=== PATIENT | female | born 1980 | race Caucasian/White ===

== ENCOUNTER → 2019-04-02 17:21 | Outpatient (CLI) | payer OTHER, SELFPAY ==
--- NOTE | ~2019-04-02 | MM_ITS ---
EXAMINATION: MM screening tristan BI w mynor HISTORY: Screening mammogram TECHNIQUE: Craniocaudal and mediolateral oblique 3-D tomosynthesis images were obtained and synthetic 2-D images were generated. CAD analysis was submitted and interpreted. COMPARISON: No prior mammogram is available for comparison at this institution. BREAST PARENCHYMAL COMPOSITION: There are scattered areas of fibroglandular density. FINDINGS: There is no evidence of suspicious mass, calcification, or architectural distortion to sugg est malignancy in either breast. There has been no suspicious interval change. IMPRESSION: 1. No mammographic evidence of malignancy. 2. Recommend routine screening mammography in one year. BI-RADS Category 1: Negative Reviewed, dictated and finalized at location A. ING MACHINE OPERATOR
== END ==
PROVIDERS: Visit Provider Nurse Practitioner
DX: Z12.31 Encounter for screening mammogram for malignant neoplasm of breast (principal)
CPT/HCPCS: 77063; 77067

== ENCOUNTER → 2019-04-14 09:00 | Outpatient (CLI) | payer OTHER, SELFPAY ==
--- NOTE | ~2019-04-14 | US_ITS ---
EXAMINATION: US transvaginal DATE: 04/14/2019 09:27 INDICATION: Pelvic pain Examination Comparison:No prior studies for comparison. TECHNIQUE: Multiple endovaginal sonographic images of the pelvis performed. FINDINGS: The uterus measures 9.5 x 4.2 x 5.7 cm. The endometrial complex measures 9 mm. There are co arse calcifications possibly within the endometrium with shadowing. On the right there is a complex s lightly hypoechoic mass measuring 2.6 x 3.1 x 2.6 cm, compatible with fibroid. Right ovary contains a 3.3 cm cyst. Left ovary is unremarkable measuring 2.7 x 1.4 x 2.1 cm. Right ovary measures 4.1 x 3.6 x 3.7 cm. IMPRESSION: 1. 3.1 cm uterine fibroid. 2: Complex hyperechoic mass with shadowing adjacent to the endometrium, possibly calcified submucosal fibroid or less likely polyp. Endometrial malignancy less favored, although not excluded. Consider c linical correlation. 3: 3.3 cm right ovarian cyst. Reviewed, dictated and finalized at location A. COMMUNICATION OPERATOR IMPRESSION: 1. 3.1 cm uterine fibroid. 2: Complex hyperechoic mass with shadowing adjacent to the endometrium, possibl y calcified submucosal fibroid or less likely polyp. Endometrial malignancy les s favored, although not excluded. Consider clinical correlation. 3: 3.3 cm right ovarian cyst.
== END ==
PROVIDERS: Visit Provider Nurse Practitioner
DX: N83.201 Unspecified ovarian cyst, right side (principal); D25.9 Leiomyoma of uterus, unspecified
CPT/HCPCS: 76830

== ENCOUNTER 2019-06-29 06:12 | Outpatient (CLI) | payer OTHER, SELFPAY ==
[2019-06-29 16:20] LABS: SARS-CoV-2 RNA PCR Negative
--- NOTE | 2019-07-02 10:22 | OP_ITS ---
DATE OF PROCEDURE: 07/02/2019 PREOPERATIVE DIAGNOSIS: Endometrial mass. POSTOPERATIVE DIAGNOSIS: Endometrial mass. PROCEDURES PERFORMED: D and C, hysteroscopy with MyoSure resection of probable fibroid. SURGEON: Jordyn Anthony M.D. ANESTHESIA: MAC and local. FINDINGS: The cervix is superiorly stenotic at the internal os. There are calcifications noted anteriorly and posteriorly near the cervix. There was a mass at the posterior calcification site consistent with a probable fibroid. ESTIMATED BLOOD LOSS: 5 cc. PATHOLOGY: Endometrial shavings and curettings. DESCRIPTION OF PROCEDURE: The patient was taken to the operating room, placed under anesthesia, prepped and draped in the usual sterile fashion in the dorsal lithotomy position. She was prepped and draped. Ledbetter speculum was placed in the vagina. Cervix was grasped on the anterior lip with a tenaculum and injected with 1% lidocaine. The uterus was attempted to be sounded and the internal os was noted to be stenotic. The Os Finders are used and I am unable to enter the stenosis. Dilators are used and unable to enter the stenosis. The cervix was dilated to an 8, up to the internal os. The hysteroscope was placed. The internal os is visible and noted to be approximately at 12 o'clock more anterior. The sheath was removed from the hysteroscope and attempted to proceed into the internal cavity without the sheath and this was not successful. The hysteroscope was removed. The small dilators were used aiming for the previously visualized internal os. This was successful and the cervix was able to be dilated. The hysteroscope was then able to be placed. The right tubal ostia are visualized and appears normal. There is extensive scarring at the endometrium consistent with the prior ablation. There are calcifications noted anteriorly and that is the scar tissue. There is also calcification noted on the posterior wall near the cervical junction and an area that appears to be a probable fibroid. The hysteroscope was removed. The MyoSure device was opened and placed. The anterior calcifications are removed under direct visualization. The posterior mass near the cervix is removed under direct visualization. The internal cervical os scar tissue is also removed using the MyoSure device. The MyoSure device was then removed. The medium sharp curette was used to sharply curette the endometrium until a good uterine cry was noted in all areas. All instruments were removed. The patient was awakened from anesthesia and taken to Recovery in stable condition. D I MT: Vi
== END 2019-06-29 06:13 | disposition home or self-care (01) ==
LOC: ANHCOVIDDT 06:13
PROVIDERS: PCP Family Medicine; Visit Provider Obstetrics & Gynecology Gynecology
DX: Z01.818 Encounter for other preprocedural examination (principal); Z11.59 Encounter for screening for other viral diseases; N94.89 Other specified conditions associated with female genital organs and menstrual cycle
CPT/HCPCS: 87635; C9803; U0003

== ENCOUNTER 2019-07-02 00:19 | Day surgery (SDC) | payer OTHER, SELFPAY ==
[2019-06-26 10:38] VITALS: BMI 23.7
[2019-07-02] MEDS: LACTATED RINGERS 1,000 ML 30 ML IV CONT (06:55)
--- NOTE | 2019-07-02 07:03 | P.PNAN_ITS ---
Anes - Initial Pre Proc Eval Procedure: Operation Date: 07/02/19 08:15 Proposed Procedures p Hysteroscopy, Dilation and Curettage - Jordyn Anthony MD Date/Time: 07/02/19 07:03 Surgeon: Jordyn Anthony MD Pre Op Diagnosis: endometrial mass Patient Data Age: 38 Gender: F Height: 6 ft 1 in Weight: 81.65 kg Allergies Allergy/AdvReac Type Severity Reaction Status Date / Time No Known Allergies Allergy Unverified 06/26/19 10:39 Home Medications Medication Instructions Recorded Confirmed Type Vitamin D3 1 tablet PO DAILY 06/26/19 06/26/19 History cyanocobalamin (vitamin B-12) 1,000 mcg PO DAILY 06/26/19 06/26/19 History [Vitamin B-12] ketoconazole 1 applic TOPICAL Q3D 06/26/19 06/26/19 History nitrofurantoin monohyd/m-cryst 100 mg PO DAILY 06/26/19 06/26/19 History Glucosamine Chondroitin/Aloe 1 tablet PO DAILY 06/29/19 History Patient hx anesthesia problems: none Family hx anesthesia problems: none [facility] Past Medical History Medical History (Updated 07/02/19 @ 07:05 by Domenic Ramachandran MD) Anxiety Anes - Eval Final PreProcedure Day of Procedure 07/02/19 07:03 Patient weight: normal Heart: regular rate and rhythm Lungs: clear to auscultation Airway: Mallampati scale class II Neurological: alert and oriented Last oral intake: >/= 8 hours ASA classification: II Emergent: no Anesthetic plan: proceed Anesthesia type and monitoring: general GIVS and standard monitoring Informed Consent: The patient's anesthetic plan and its attendant risks and benefits were discussed with the patient/family/POA. Questions were solicited and answers provided to the satisfaction of the patient/family/POA.
[2019-07-02 07:17] VITALS: BP 98/76; PULSE 88; RESP 18; TEMP 36.7; O2SAT 100
--- NOTE | 2019-07-02 07:21 | PM.HPGS ---
History of Present Illness History of Present Illness Consent: Risks, benefits, and alternatives have been discussed and questions answered. Patient agrees to proceed with procedure. Chief complaint: endometrial mass Narrative: Aleshia Grullon is a 38 year old female with pelvic pain. Patient underwent u/s which showed a complex endometrial mass measuring 3.1x2.6 cm. Reading states possible calcified fibroid, polyp, or malignancy. Patient with prior endometrial ablation and has no menses since then. Attempted to perform in office but due to prior ablation causing stenosis, unable to enter cavity. Patient given cytotec 1000mcg q hs x 5 days prior to proceedure. Risks of perforation and not being able to enter cavity reviewed. Risks of infection, bleeding, and fluid overload discussed. Patient states understanding and agrees to proceed. [facility] Past Medical History Medical History (Updated 07/02/19 @ 07:29 by Jordyn Anthony MD) Anxiety Chlamydia HSV (herpes simplex virus) anogenital infection Recurrent UTI Surgical History Surgical History (Updated 07/02/19 @ 07:27 by Jordyn Anthony MD) S/P endometrial ablation S/P LEEP S/P primary low transverse S/P repeat low transverse x 1 S/P tonsillectomy S/P tubal ligation Meds Home Medications and Allergies Home Medications Medication Instructions Recorded Confirmed Type Vitamin D3 1 tablet PO DAILY 06/26/19 07/02/19 History cyanocobalamin (vitamin B-12) 1,000 mcg PO DAILY 06/26/19 07/02/19 History [Vitamin B-12] ketoconazole 1 applic TOPICAL Q3D 06/26/19 07/02/19 History nitrofurantoin monohyd/m-cryst 100 mg PO DAILY 06/26/19 07/02/19 History Glucosamine Chondroitin/Aloe 1 tablet PO DAILY 06/29/19 07/02/19 History Allergies Allergy/AdvReac Type Severity Reaction Status Date / Time No Known Allergies Allergy Unverified 07/02/19 07:15 Vital Signs Vital Signs - 24 hr 07/02/19 07:17 Temperature 98.0 F Pulse Rate 88 Respiratory Rate 18 Blood Pressure 98/76 L Pulse Oximetry 100 Exam Const: General: healthy appearing and alert Orientation/consciousness: patient oriented x3 Resp: Effort & Inspection: normal respiratory effort Auscultation: clear to auscultation bilaterally Cardio: Rate: regular rate Rhythm: regular rhythm GI: GI Palp: Yes Soft to palpation, No Tenderness to palpation present (GI) and No Palpable mass present : External Female Exam: normal external appearance Speculum Exam - Vagina: normal appearance of the vagina and normal vaginal discharge Speculum Exam - Cervix: normal appearance of the cervix Bimanual exam- vagina & uterus: uterine size normal, consistency normal and Uterine tenderness Bimanual Exam- Adnexa, other: normal adnexae and No adnexal tenderness Neuro: General: patient oriented x3 Assessment and Plan Assessment and plan (1) Endometrial mass: Code(s): N94.89 - Other specified conditions associated with female genital organs and menstrual cycle Status: Acute Assessment and Plan: Plan hysteroscopy with D&C and possible myosure resection.
[2019-07-02] MEDS: KETOROLAC 30 MG/ML VIAL (*BKC) 15 MG IV PUSH (08:44)
[2019-07-02 08:52] VITALS: BP 128/71; PULSE 97; RESP 14; O2SAT 100
--- NOTE | 2019-07-02 09:05 | PM.OP ---
Procedure Note - Brief Procedure Note - Brief Date of procedure: 07/02/19 Pre-op diagnosis: endometrial mass cervical stenosis Post-op diagnosis: same Procedure performed: D&C hysteroscopy Anesthesia: MAC and local Surgeon: Jordyn Anthony MD Estimated blood loss (mL): 5 Drains: No Packing: No Pathology: yes (endometrial curettings) Complications: No immediate complications Condition: stable Disposition: PACU Findings: internal os very stenotic; calcifications anterior and posterior with apparent fibroid near cervical juntion
[2019-07-02 09:20] VITALS: BP 118/77; PULSE 91; RESP 14; O2SAT 100
--- NOTE | 2019-07-02 09:37 | OP_ITS ---
This report was moved to the correct visit, [id number] on 07/03/19. Original report was signed by Dr. Jordyn Anthony on 07/02/19 at 1126. DATE OF PROCEDURE: 07/02/2019 PREOPERATIVE DIAGNOSIS: Endometrial mass. POSTOPERATIVE DIAGNOSIS: Endometrial mass. PROCEDURES PERFORMED: D and C, hysteroscopy with MyoSure resection of probable fibroid. SURGEON: Jordyn Anthony M.D. ANESTHESIA: MAC and local. FINDINGS: The cervix is superiorly stenotic at the internal os. There are calcifications noted anteriorly and posteriorly near the cervix. There was a mass at the posterior calcification site consistent with a probable fibroid. ESTIMATED BLOOD LOSS: 5 cc. PATHOLOGY: Endometrial shavings and curettings. DESCRIPTION OF PROCEDURE: The patient was taken to the operating room, placed under anesthesia, prepped and draped in the usual sterile fashion in the dorsal lithotomy position. She was prepped and draped. [place] speculum was placed in the vagina. Cervix was grasped on the anterior lip with a tenaculum and injected with 1% lidocaine. The uterus was attempted to be sounded and the internal os was noted to be stenotic. The Os Finders are used and I am unable to enter the stenosis. Dilators are used and unable to enter the stenosis. The cervix was dilated to an 8, up to the internal os. The hysteroscope was placed. The internal os is visible and noted to be approximately at 12 o'clock more anterior. The sheath was removed from the hysteroscope and attempted to proceed into the internal cavity without the sheath and this was not successful. The hysteroscope was removed. The small dilators were used aiming for the previously visualized internal os. This was successful and the cervix was able to be dilated. The hysteroscope was then able to be placed. The right tubal ostia are visualized and appears normal. There is extensive scarring at the endometrium consistent with the prior ablation. There are calcifications noted anteriorly and that is the scar tissue. There is also calcification noted on the posterior wall near the cervical junction and an area that appears to be a probable fibroid. The hysteroscope was removed. The MyoSure device was opened and placed. The anterior calcifications are removed under direct visualization. The posterior mass near the cervix is removed under direct visualization. The internal cervical os scar tissue is also removed using the MyoSure device. The MyoSure device was then removed. The medium sharp curette was used to sharply curette the endometrium until a good uterine cry was noted in all areas. All instruments were removed. The patient was awakened from anesthesia and taken to Recovery in stable condition. D I MT: [facility] Dictated By: Jordyn Anthony MD 07/02/19 0937 Transcribed Date/Time: 07/02/19 1014 Signed By: Jordyn Anthony MD 07/02/19 1126 [facility]
[2019-07-02 09:50] VITALS: BP 104/53; PULSE 65; RESP 14
== END 2019-07-02 10:08 | disposition home or self-care (01) ==
PROVIDERS: PCP Family Medicine; Visit Provider Obstetrics & Gynecology Gynecology
PROC: 0U5B8ZZ Destruction of Endometrium, Via Natural or Artificial Opening Endoscopic (ICD-10-PCS; CPT 58563; principal; 2019-07-02 08:15)
DX: N85.8 Other specified noninflammatory disorders of uterus (principal); F41.9 Anxiety disorder, unspecified; B00.9 Herpesviral infection, unspecified
CPT/HCPCS: 58558; 88305; A9270; J1100; J1885; J2001; J2250; J2405; J2704; J3010; J7030; J7120

== ENCOUNTER → 2019-09-24 11:23 | Outpatient (CLI) | payer OTHER, SELFPAY ==
--- NOTE | ~2019-09-24 | US_ITS ---
EXAMINATION: US transvaginal DATE: 09/24/2019 11:56 INDICATION: Right ovarian cyst, history of endometrial ablation TECHNIQUE: Multiple endovaginal sonographic images of the pelvis were obtained. COMPARISON: 05/13/2019 FINDINGS: The uterus measures 7.8 x 3.8 x 4.6 cm. Again seen is a small echogenic area in the endomet rium, likely related to history of endometrial ablation. There is a 1.6 x 1.0 cm isoechoic mass in th e posterior uterine body, consistent with an intramural fibroid. A 1.9 x 2.2 x 2.4 cm mass with simil ar sonographic features in the uterine fundus also has the appearance of an intramural fibroid. The e ndometrial complex measures 5 mm. The right ovary measures 2.7 x 2.8 x 2.3 cm. No persistent right ov deedee cyst is identified. The left ovary measures 3.2 x 1.9 x 2.3 cm. There is normal vascular flow i n the ovaries. There is no free fluid in the pelvis. IMPRESSION: 1. No persistent right ovarian cyst identified. Reviewed, dictated and finalized at location A.
== END ==
PROVIDERS: Visit Provider Obstetrics & Gynecology Gynecology
DX: N83.201 Unspecified ovarian cyst, right side (principal)
CPT/HCPCS: 76830

== ENCOUNTER → 2020-04-16 17:10 | Outpatient (CLI) | payer BC, SELFPAY ==
--- NOTE | ~2020-04-16 | MM_ITS ---
EXAMINATION: MM screening tristan BI w mynor HISTORY: Screening mammogram TECHNIQUE: Craniocaudal and mediolateral oblique 3-D tomosynthesis images were obtained and synthetic 2-D images were generated. CAD analysis was submitted and interpreted. COMPARISON: 04/02/2019 bilateral digital screening mammogram BREAST PARENCHYMAL COMPOSITION: There are scattered areas of fibroglandular density. FINDINGS: There is no evidence of suspicious mass, calcification, or architectural distortion to sugg est malignancy in either breast. There has been no suspicious interval change. IMPRESSION: 1. No mammographic evidence of malignancy. 2. Recommend routine screening mammography in one year. BI-RADS Category 1: Negative Reviewed, dictated and finalized at location A. 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
== END ==
PROVIDERS: Visit Provider Nurse Practitioner
DX: Z12.31 Encounter for screening mammogram for malignant neoplasm of breast (principal)
CPT/HCPCS: 77063; 77067

== ENCOUNTER → 2021-06-15 16:58 | Outpatient (CLI) | payer BC, SELFPAY ==
--- NOTE | ~2021-06-15 | MM_ITS ---
EXAMINATION: MM screening tristan BI w mynor HISTORY: Screening TECHNIQUE: Craniocaudal and mediolateral oblique 3-D tomosynthesis images were obtained and synthetic 2-D images were generated. CAD analysis was submitted and interpreted. COMPARISON: Comparison to multiple prior studies sequentially, with oldest reviewed study dated 04/02. BREAST PARENCHYMAL COMPOSITION: The breasts are heterogeneously dense, which may obscure small masses . FINDINGS: There is a new mass in the upper outer quadrant of the right breast, posterior third. The l eft breast is stable without evidence for malignancy. IMPRESSION: 1. New right breast mass, upper outer quadrant. 2. Additional mammographic views and possible breast ultrasound are recommended. BI-RADS Category 0: Incomplete: Needs additional imaging evaluation. Reviewed, dictated and finalized at location A. IMPRESSION: 1. New right breast mass, upper outer quadrant. 2. Additional mammographic views and possible breast ultrasound are recommended . BI-RADS Category 0: Incomplete: Needs additional imaging evaluation.
== END ==
PROVIDERS: PCP Nurse Practitioner; Visit Provider Nurse Practitioner
DX: Z12.31 Encounter for screening mammogram for malignant neoplasm of breast (principal); R92.8 Other abnormal and inconclusive findings on diagnostic imaging of breast
CPT/HCPCS: 77063; 77067

== ENCOUNTER → 2021-06-30 07:52 | Outpatient (CLI) | payer BC, SELFPAY ==
--- NOTE | ~2021-06-30 | MMUS_ITS ---
EXAMINATION: MM diagnostic tristan RT w mynor, US breast RT limited HISTORY: Follow-up right breast asymmetries TECHNIQUE: Additional 3-D tomosynthesis images of the right breast were performed and synthetic 2-D i mages were generated. CAD analysis was submitted and interpreted. High resolution Limited right breas t ultrasound was performed. COMPARISON: Comparison to multiple prior studies sequentially, with oldest reviewed study dated 04/02. BREAST PARENCHYMAL COMPOSITION: Breast composed of scattered areas of fibroglandular density FINDINGS: MAMMOGRAPHIC FINDINGS: There is a small radiolucent mass upper outer quadrant of the right breast measuring approximately 5 mm by mammography. No suspicious calcifications or architectural distortion. ULTRASOUND: Limited right breast ultrasound: At 11:00, 1 cm from the nipple there is a 3 mm cyst. At 10:00, 5 cm from the nipple there is a 4 mm cyst. No suspicious masses to suggest malignancy. IMPRESSION: 1. No evidence for malignancy in the right breast. Benign findings. 2. Routine yearly screening mammogram and regular clinical breast examination are recommended. BI-RADS Category 2: Benign finding(s). Reviewed, dictated and finalized at location A. IMPRESSION: 1. No evidence for malignancy in the right breast. Benign findings. 2. Routine yearly screening mammogram and regular clinical breast examination a re recommended. BI-RADS Category 2: Benign finding(s).
== END ==
PROVIDERS: PCP Family Medicine; Visit Provider Obstetrics & Gynecology Gynecology
DX: R92.8 Other abnormal and inconclusive findings on diagnostic imaging of breast (principal); N60.01 Solitary cyst of right breast
CPT/HCPCS: 76642; 77061; 77065; G0279

== ENCOUNTER 2022-01-08 15:24 | Emergency (ER) | payer BC, SELFPAY ==
[2022-01-08 15:32] VITALS: BP 127/74; PULSE 74; RESP 18; TEMP 36.7; O2SAT 100
--- NOTE | 2022-01-08 16:00 | ED.URI ---
HPI - URI/Sore Throat General Chief Complaint: Upper Respiratory Infection Stated Complaint: sore throat ear pressure Time Seen by Provider: 01/08/22 15:49 Source: patient Mode of arrival: ambulatory Limitations: no limitations History of Present Illness HPI Narrative: Patient presents today with a 3 day history of irritated throat, right ear plugging, postnasal drainage. Denies fever or cough. She has been taking Mucinex and ibuprofen at home without much relief. Daughter his sick with URI. She has been vaccinated against COVID-19. She has not had a flu vaccine. Related Data Home Medications Medication Instructions Recorded Confirmed buspirone 5 mg tablet 15 mg PO DAILY 01/08/22 01/08/22 Allergies Allergy/AdvReac Type Severity Reaction Status Date / Time No Known Allergies Allergy Verified 01/08/22 15:40 Review of Systems Review of Systems: CONSTITUTIONAL: Denies body aches, fever, chills, or sweats. EYES: Denies visual changes, redness, or discharge. ENT: Denies rhinorrhea, congestion, or otalgia.+ irritated throat, postnasal drip, right ear clogging CARDIOVASCULAR: Denies chest pain, palpitations, or edema. RESPIRATORY: Denies cough or dyspnea. GASTROINTESTINAL: Denies abdominal pain, nausea, vomiting, or diarrhea. GENITOURINARY: Denies dysuria or hematuria. SKIN: Denies rash, itching, or wounds. MUSCULOSKELETAL: Denies back pain, joint pain, or myalgia. NEUROLOGIC: Denies headache, numbness, tingling, or weakness. PSYCH: Denies depression or anxiety. [facility] Past Medical History Medical History Anxiety Chlamydia HSV (herpes simplex virus) anogenital infection Recurrent UTI Surgical History Surgical History S/P endometrial ablation S/P LEEP S/P primary low transverse S/P repeat low transverse x 1 S/P tonsillectomy S/P tubal ligation Comments At time of signature, I have reviewed and agree with nursing past medical, surgical, social and family history unless otherwise noted. Please see nursing chart for further information. There is no relevant family history pertinent to the presenting complaint Exam Narrative: GENERAL: Mildly ill-appearing, well-nourished, and in no acute distress. HEAD: Normocephalic, atraumatic. EYES: EOMI. No redness or drainage. Conjunctivae normal. ENT: Mucous membranes pink and moist. Nares clear. No rhinorrhea. Left TM normal. Right TM with serous effusion. Throat normal. Uvula midline. NECK: Normal AROM. Supple. No lymphadenopathy. CHEST: No respiratory distress. Clear to auscultation. HEART: Regular rate and rhythm. No murmur appreciated. Normal peripheral pulses. EXTREMITIES: Normal range of motion. No edema. SKIN: Warm, dry, no rash. Capillary refill normal. Normal skin turgor. NEURO: No focal deficits. Alert and oriented x3. Gait steady. PSYCH: Normal affect. No signs of depression or anxiety. Course Course Level of Care: Express Care Visit Vital Signs Vital signs: Vital Signs Temperature 98.1 F 01/08/22 15:32 Pulse Rate 74 01/08/22 15:32 Respiratory Rate 18 01/08/22 15:32 Blood Pressure 127/74 01/08/22 15:32 Pulse Oximetry 100 01/08/22 15:32 Oxygen Delivery Room Air 01/08/22 15:32 Temperature 98.1 F 01/08/22 15:32 Pulse Rate 74 01/08/22 15:32 Respiratory Rate 18 01/08/22 15:32 Blood Pressure 127/74 01/08/22 15:32 Pulse Oximetry 100 01/08/22 15:32 Oxygen Delivery Room Air 01/08/22 15:32 Reviewed. Pt has been instructed to follow up with her PCP regarding her elevated blood pressure today. MDM - URI/Sore Throat Differential Diagnosis Differential diagnosis: Likely upper respiratory infection, otitis media, viral infection, influenza and other (Serous effusion, ruptured TM) Lab Data Attestation: I reviewed the patient's lab results. Labs: Influenza
== END 2022-01-08 16:05 | disposition home or self-care (01) ==
PROVIDERS: Emergency Provider Nurse Practitioner; PCP Family Medicine
DX: J06.9 Acute upper respiratory infection, unspecified (principal); F41.9 Anxiety disorder, unspecified
CPT/HCPCS: 87804; 99213; G0463

== ENCOUNTER 2022-01-10 08:40 | Emergency (ER) | payer BC, SELFPAY ==
[2022-01-10 08:50] VITALS: BP 133/75; PULSE 87; RESP 18; TEMP 36.8; O2SAT 99
--- NOTE | 2022-01-10 09:10 | ED.URI ---
HPI - URI/Sore Throat General Chief Complaint: Upper Respiratory Infection Stated Complaint: Sore Throat Time Seen by Provider: 01/10/22 09:10 Source: patient, RN notes reviewed and old records reviewed Mode of arrival: ambulatory Limitations: no limitations History of Present Illness HPI Narrative: 41-year-old female who presents to [facility] with complaints of nasal drainage, sore throat, generalized aches and low grade fevers. Patient was here on Tuesday and tested for influenza which was negative but feels her symptoms have increased and throat has been increasingly sore. Patient has been taking Zyrtec, Sudafed,Flonase for her symptoms and steroids. MD elicited complaint: sore throat, rhinorrhea and nasal congestion Pertinent past history: sinusitis Pain scale (0-10): 5 Treatments prior to arrival: ibuprofen and other (zyrtec, sudafed and flonase) Related Data Home Medications Medication Instructions Recorded Confirmed buspirone 5 mg tablet 15 mg PO DAILY 01/08/22 01/10/22 doxycycline hyclate 20 mg tablet 20 mg PO DAILY 01/10/22 01/10/22 ergocalciferol (vitamin D2) 1,250 50,000 unit PO WEEKLY 01/10/22 01/10/22 mcg (50,000 unit) capsule fluticasone propionate 50 1 spray intranasal DAILY 01/10/22 01/10/22 mcg/actuation nasal spray,suspension spironolactone 100 mg tablet 100 mg PO DAILY 01/10/22 01/10/22 zolpidem 12.5 mg tablet,extended 12.5 mg PO DAILY 01/10/22 01/10/22 release,multiphase Allergies Allergy/AdvReac Type Severity Reaction Status Date / Time No Known Allergies Allergy Verified 01/10/22 09:25 Review of Systems Review of Systems: CONSTITUTIONAL: Reports malaise, chills, sweats, or fever. EYES: Denies visual changes, redness, or discharge. ENT: Reports rhinorrhea, congestion, sinus pain, otalgia and sore throat. CARDIOVASCULAR: Denies chest pain, palpitations, or edema. RESPIRATORY: Denies acute cough.? Denies dyspnea. GASTROINTESTINAL: Denies abdominal pain, nausea, vomiting, diarrhea SKIN: Denies rash or itching. MUSCULOSKELETAL: reports myalgia. NEUROLOGIC: Denies headache. All systems reviewed & are unremarkable except as noted in HPI and below PMFSH Past Medical History Medical History Anxiety Chlamydia HSV (herpes simplex virus) anogenital infection Recurrent UTI Surgical History Surgical History S/P endometrial ablation S/P LEEP S/P primary low transverse S/P repeat low transverse x 1 S/P tonsillectomy S/P tubal ligation Comments At time of signature, agree with nursing past medical, surgical, social and family history. There is no relevant family history pertinent to the presenting complaint Exam Narrative: GENERAL: Well-appearing, well-nourished, and in no acute distress. HEAD: Normocephalic EYES: PERRLA, conjunctivae clear ENT: Nares clear, turbinates edematous and erythematous, clear discharge. Mucous membranes moist. TM pearly hong with dull light reflex bilaterally; no tragal tenderness. Oropharynx erythematous without lesions. Tonsils not present and without exudate to throat, no drooling, no hoarseness, no trismus, uvula midline, post nasal drainage NECK: Supple. No lymphadenopathy CHEST: Clear to auscultation, breath sounds equal. No wheezing, rhonchi, rales, or stridor. No respiratory distress, speaks in full sentences.SAO2 99% on room air HEART: Regular rate and rhythm. No murmur heard. SKIN: Warm, dry, no rash. NEURO: Alert and oriented x3. PSYCH: Normal mood and affect Course Course Emergency Course: Patient is aware of diagnosis, understands and agrees to treatment plan.? Anticipatory guidance given.? Patient agrees to follow-up as directed and is aware of reasons to seek care at the emergency department. Portions of this record may have been created with voice recognition sof
== END 2022-01-10 10:41 | disposition home or self-care (01) ==
PROVIDERS: Emergency Provider Registered Nurse; PCP Family Medicine
DX: J32.8 Other chronic sinusitis (principal); B96.89 Other specified bacterial agents as the cause of diseases classified elsewhere
CPT/HCPCS: 87081; 87880; 99213; G0463

== ENCOUNTER → 2022-07-05 16:39 | Outpatient (CLI) | payer BC, SELFPAY ==
--- NOTE | ~2022-07-05 | MM_ITS ---
EXAMINATION: MM screening [facility] BI w mynor HISTORY: Screening mammogram TECHNIQUE: Craniocaudal and mediolateral oblique 3-D tomosynthesis images were obtained and synthetic 2-D images were generated. CAD analysis was submitted and interpreted. COMPARISON: 06/30/2021, 06/15/2021, 04/16/2020 BREAST PARENCHYMAL COMPOSITION: There are scattered areas of fibroglandular density. FINDINGS: No suspicious mass, calcification, or architectural distortion are identified in either cata ast to suggest malignancy. There has been no suspicious interval change. IMPRESSION: 1. No mammographic evidence of malignancy. 2. Recommend routine screening mammography in one year. BI-RADS Category 1: Negative Reviewed, dictated and finalized at location A.
== END ==
PROVIDERS: PCP Family Medicine; Visit Provider Nurse Practitioner
DX: Z12.31 Encounter for screening mammogram for malignant neoplasm of breast (principal)
CPT/HCPCS: 77063; 77067

== ENCOUNTER 2023-09-05 13:59 | Outpatient (CLI) | payer BC, SELFPAY ==
--- NOTE | ~2023-09-05 | MM_ITS ---
EXAMINATION: MM screening [facility] BI w mynor HISTORY: Screening TECHNIQUE: Craniocaudal and mediolateral oblique 3-D tomosynthesis images were obtained and synthetic 2-D images were generated. CAD analysis was submitted and interpreted. COMPARISON: Comparison to multiple prior studies sequentially, with oldest reviewed study dated 04/02. BREAST PARENCHYMAL COMPOSITION: Dense: The breasts are heterogeneously dense, which may obscure small masses FINDINGS: There is a mass in the upper aspect of the left breast on MLO view which is new compared wi th prior examinations. The right breast is stable without evidence for malignancy. IMPRESSION: 1. New left breast mass. 2. Additional mammographic views and possible breast ultrasound are recommended. BI-RADS Category 0: Incomplete: Needs additional imaging evaluation. Reviewed, dictated and finalized at location B. IMPRESSION: 1. New left breast mass. 2. Additional mammographic views and possible breast ultrasound are recommended . BI-RADS Category 0: Incomplete: Needs additional imaging evaluation.
== END 2023-09-05 14:00 ==
LOC: MICIMG 14:00
PROVIDERS: PCP Nurse Practitioner; Visit Provider Nurse Practitioner
DX: Z12.31 Encounter for screening mammogram for malignant neoplasm of breast (principal); N63.20 Unspecified lump in the left breast, unspecified quadrant
CPT/HCPCS: 77063; 77067

== ENCOUNTER 2023-09-28 09:06 | Outpatient (CLI) | payer BC, SELFPAY ==
--- NOTE | ~2023-09-28 | MMUS_ITS ---
EXAMINATION: MM diagnostic [facility] LT w mynor, US breast LT limited HISTORY: Follow-up left breast mass TECHNIQUE: Additional 3-D tomosynthesis images of the left breast were performed and synthetic 2-D im ages were generated. CAD analysis was submitted and interpreted. High resolution Limited left breast ultrasound was performed. COMPARISON: 09/05/2023 BREAST PARENCHYMAL COMPOSITION: Not dense: There are scattered areas of fibroglandular density. FINDINGS: MAMMOGRAPHIC FINDINGS: There is a focal asymmetry laterally in the left breast, best seen on medial lateral view, although a lso seen on prior left CC view. There are no suspicious calcifications or architectural distortion. ULTRASOUND: Limited left breast ultrasound: At 2:00, 5 cm from the nipple there is an oval hypoechoic mass measur ing 6 mm, likely benign IMPRESSION: 1. Probable benign 6 mm mass at 2:00, 5 cm from the nipple, likely corresponding to the mammographic finding. 2. Recommend 6 month follow-up Limited left breast ultrasound and diagnostic left mammogram. BI-RADS category 3, probably benign findings. Reviewed, dictated and finalized at location B. IMPRESSION: 1. Probable benign 6 mm mass at 2:00, 5 cm from the nipple, likely correspondin g to the mammographic finding. 2. Recommend 6 month follow-up Limited left breast ultrasound and diagnostic le ft mammogram. BI-RADS category 3, probably benign findings.
== END 2023-09-28 09:07 ==
PROVIDERS: PCP Nurse Practitioner; Visit Provider Obstetrics & Gynecology Gynecology
DX: R92.8 Other abnormal and inconclusive findings on diagnostic imaging of breast (principal)
CPT/HCPCS: 76642; 77061; 77065; G0279

== ENCOUNTER 2023-12-25 10:29 | Emergency (ER) | payer BC, SELFPAY ==
[2023-12-25 10:32] VITALS: BP 104/56; PULSE 85; RESP 18; TEMP 36.7; O2SAT 100
--- NOTE | 2023-12-25 10:44 | ED_ITS ---
HPI - URI/Sore Throat General Chief Complaint: Upper Respiratory Infection Stated Complaint: Dry cough x 7 days Time Seen by Provider: 12/25/23 10:44 Source: patient, RN notes reviewed and old records reviewed Mode of arrival: ambulatory Limitations: no limitations History of Present Illness HPI Narrative: 42 year old female who presents to [facility] care with complaints of 7 day duration of dry cough, headache, sinus congestion with episodes of coughing fits. Patient reports that her doctor ordered her Amoxicillin and Tessalon Perles for her symptoms on for which she is taking as ordered along with Zyrtec, Sudafed,and using Flonase nasal spray with continued episodes of dry cough. Patient reports that she has had increased cough at night. Patient denies any known fevers chills or sweats or body aches. MD elicited complaint: cough, rhinorrhea, nasal congestion and other (headache) Pertinent past history: sinusitis Onset (ago): week(s) (1) Severity: moderate Able to tolerate fluids by mouth: Yes Treatments prior to arrival: other (Amoxicillin and Tessalon Perles, Flonase, Zyrtec and Sudafed) Related Data Home Medications Medication Instructions Recorded Confirmed ergocalciferol (vitamin D2) 1,250 50,000 unit PO WEEKLY 01/10/22 12/25/23 mcg (50,000 unit) capsule amoxicillin 875 mg tablet See Rx Instructions .Route .COMPLEX 12/25/23 12/25/23 benzonatate 200 mg capsule See Rx Instructions .Route .COMPLEX 12/25/23 12/25/23 buspirone 10 mg tablet See Rx Instructions .Route .COMPLEX 12/25/23 12/25/23 escitalopram oxalate 20 mg tablet 20 mg PO DAILY 12/25/23 12/25/23 eszopiclone 3 mg tablet 3 mg PO HS 12/25/23 12/25/23 Allergies Allergy/AdvReac Type Severity Reaction Status Date / Time No Known Allergies Allergy Verified 12/25/23 10:49 Review of Systems Review of Systems: CONSTITUTIONAL: Denies malaise, chills, sweats, or fever. EYES: Denies visual changes, redness, or discharge. ENT: Reports rhinorrhea, congestion, no sinus pain, no otalgia and no sore throat. CARDIOVASCULAR: Denies chest pain, palpitations, or edema. RESPIRATORY: Reports cough.? Denies dyspnea. GASTROINTESTINAL: Denies abdominal pain, nausea, vomiting, diarrhea SKIN: Denies rash or itching. MUSCULOSKELETAL: Denies myalgia. NEUROLOGIC: Reports headache. All systems reviewed & are unremarkable except as noted in HPI and below PMFSH Past Medical History Medical History Anxiety Chlamydia HSV (herpes simplex virus) anogenital infection Recurrent UTI Surgical History Surgical History S/P endometrial ablation S/P LEEP S/P primary low transverse S/P repeat low transverse x 1 S/P tonsillectomy S/P tubal ligation Social History Social History Smoking status: Never smoker Alcohol intake: current Alcohol use details: social Substance use type: does not use Living arrangements: with family Gender identity (if verbalized by the patient): Female Comments At time of signature, agree with nursing past medical, surgical, social and family history. There is no relevant family history pertinent to the presenting complaint Exam Narrative: GENERAL: Well-appearing, well-nourished, and in no acute distress. HEAD: Normocephalic EYES: PERRLA, conjunctivae clear ENT: Nares clear, turbinates edematous and erythematous, clear discharge, headache. Mucous membranes moist. TM pearly hong with dull light reflex bilaterally; no tragal tenderness. Oropharynx erythematous without lesions. Tonsils not present and without exudate, no drooling, no hoarseness, no trismus, uvula midline, post nasal drainage NECK: Supple. No lymphadenopathy CHEST: Clear to auscultation, breath sounds equal. No wheezing, rhonchi, rales, or stridor. No respiratory distress, speaks in full sentences.positive for cough SAO2 100% on room air HEART: Regular rate and rhythm. No murmur heard. SKIN: Warm, dry, no rash. NEURO: Alert and oriented x3. PSYCH: Normal mood and affect Course Course Emergency Course: Patient is aware of diagnosis, understands and agrees to treatment plan.? Anticipatory guidance given.? Patient agrees to follow-up as directed and is aware of reasons to seek care at the emergency department. Portions of this record may have been created with voice recognition software Level of Care: Express Care Visit Vital Signs Vital signs: Reviewed MDM - URI/Sore Throat MDM Narrative Medical decision making narrative: Differential diagnosis considered: Kamara virus, strep pharyngitis, allergic rhinitis, upper respiratory tract infection, sinusitis, rhinosinusitis, nasopharyngitis. viral pharyngitis, otitis media, otitis externa, pneumonia, bronchitis, viral cough syndrome, viral syndrome, and influenza.? Exam findings show no acute concerns or changes; patient is non-toxic appearing and is in no distress.? Patient is appropriate for outpatient treatment and follow-up. Differential Diagnosis Differential diagnosis: Likely upper respiratory infection, sinusitis, viral infection, bronchitis and other (acute cough) Medical Records Attestation: I reviewed the patient's medical records. Lab Data Attestation: I reviewed the patient's lab results. Critical Care Time Critical Care Time Critical Care Time: No Discharge Plan Discharge Clinical Impression: Upper respiratory infection with cough and congestion Patient Disposition: Home, Self-Care Condition: Stable Instructions: Antibiotic Form, Upper Respiratory Infection (ED) Additional Instructions: Increase fluids especially juices and water [id number] cough and cold medicine of your choice for your symptoms Cough tablets as directed for cough--do not bite, chew or suck on--swallow whole continue Zyrtec with Sudafed daily Steroids as directed--take with food heat to the face 20-30 minutes 4-6 times a day for pain Salt water gargles, throat lozenges or throat sprays as desired Antibiotic as directed--finish the medication which was prescribed 2023 by PCP If your symptoms persist, change or worsen significantly before you can contact your personal physician then please, without delay, go to the emergency department for further evaluation. Follow-up with PCP in 7-10 days or sooner if needed Prescriptions: New prednisone 50 mg tablet 50 mg PO DAILY Qty: 5 0RF No Action ergocalciferol (vitamin D2) 1,250 mcg (50,000 unit) capsule 50,000 unit PO WEEKLY benzonatate 200 mg capsule See Rx Instructions .ROUTE .COMPLEX Rx Instructions: prescribed 12/21 amoxicillin 875 mg tablet See Rx Instructions .ROUTE .COMPLEX Rx Instructions: prescribed 12/21 eszopiclone 3 mg tablet 3 mg PO HS buspirone 10 mg tablet See Rx Instructions .ROUTE .COMPLEX Rx Instructions: as prescribed escitalopram oxalate 20 mg tablet 20 mg PO DAILY Follow-up/Referrals: Harms,Jeremy Caldera M.D. [Primary Care Provider] - Time of Disposition: 11:01 Quality Ana Coma Scale Eyes: Open Verbal: Oriented and Alert Motor: Follows Commands Ana Coma Total Score: 15
[2023-12-25 10:47] VITALS: BP 104/56; PULSE 85; RESP 18; TEMP 36.7; O2SAT 100
== END 2023-12-25 11:05 | disposition home or self-care (01) ==
PROVIDERS: Emergency Provider Registered Nurse; PCP Family Medicine
DX: J06.9 Acute upper respiratory infection, unspecified (principal); F41.9 Anxiety disorder, unspecified
CPT/HCPCS: 99213; G0463

== ENCOUNTER 2024-01-07 11:04 | Emergency (ER) | payer BC, SELFPAY ==
--- NOTE | ~2024-01-07 | XR_ITS ---
EXAMINATION: XR chest 2V DATE: 01/07/2024 11:34 INDICATION: Cough. TECHNIQUE: Frontal and lateral views of the chest were obtained. COMPARISON: None. FINDINGS: There is mild scarring at the lung apices. No pleural effusion or pneumothorax. The heart s ize is normal. IMPRESSION: 1. Mild scarring at the lung apices. Reviewed, dictated and finalized at location A. REMODELER
[2024-01-07 11:10] VITALS: BP 126/67; PULSE 105; RESP 20; TEMP 37.1; O2SAT 100
--- NOTE | 2024-01-07 11:30 | ED_ITS ---
HPI - General Adult General Chief complaint: Upper Respiratory Infection Stated complaint: cough/drainage Source: patient Mode of arrival: ambulatory Limitations: no limitations History of Present Illness HPI narrative: Patient presents for evaluation of cough for several weeks. She indicates she was seen here on December 24 and was given a prescription for steroids. She had been given amoxicillin by her primary care provider shortly before that. She states the steroids did help. She had recurrence of her symptoms 2 days ago. She reports a cough and nasal congestion. She denies any fever, chills, nausea, vomiting, diarrhea, shortness of breath. She does not smoke. Related Data Home Medications Medication Instructions Recorded Confirmed ergocalciferol (vitamin D2) 1,250 50,000 unit PO WEEKLY 01/10/22 12/25/23 mcg (50,000 unit) capsule benzonatate 200 mg capsule See Rx Instructions .Route .COMPLEX 12/25/23 12/25/23 buspirone 10 mg tablet See Rx Instructions .Route .COMPLEX 12/25/23 12/25/23 escitalopram oxalate 20 mg tablet 20 mg PO DAILY 12/25/23 12/25/23 eszopiclone 3 mg tablet 3 mg PO HS 12/25/23 12/25/23 Allergies Allergy/AdvReac Type Severity Reaction Status Date / Time No Known Allergies Allergy Verified 12/25/23 10:49 Review of Systems Review of Systems: CONSTITUTIONAL: Denies fever, chills, or sweats. EYES: Denies visual changes, redness, or discharge. ENT: Reports sinus congestion. Denies rhinorrhea, sore throat, or otalgia. CARDIOVASCULAR: Denies chest pain, palpitations, or edema. RESPIRATORY: Reports cough. Denies SOB GASTROINTESTINAL: Denies abdominal pain, nausea, vomiting, or diarrhea. GENITOURINARY: Denies dysuria or hematuria. SKIN: Denies rash or itching. MUSCULOSKELETAL: Denies back pain, joint pain, or myalgia. NEUROLOGIC: Denies headache, numbness, dizziness, or weakness. PSYCHIATRIC: Denies anxiety or depression. [facility] Past Medical History Medical History Anxiety Chlamydia HSV (herpes simplex virus) anogenital infection Recurrent UTI Surgical History Surgical History S/P endometrial ablation S/P LEEP S/P primary low transverse S/P repeat low transverse x 1 S/P tonsillectomy S/P tubal ligation Family History Family History Mother Family history non-contributory Social History Social History Smoking status: Never smoker Alcohol intake: current Alcohol use details: social Substance use type: does not use Living arrangements: with family Gender identity (if verbalized by the patient): Female Exam Narrative: GENERAL: Well-appearing, well-nourished, and in no acute distress. HEAD: Normocephalic, atraumatic. EYES: PERRLA and EOMI. ENT: Nares clear, no rhinorrhea or epistaxis. Mucous membranes moist. Oropharynx without tonsillar hypertrophy exudate or other lesions. Bilateral TMs pearly hong nonbulging NECK: Supple. No adenopathy or masses. No carotid bruits or JVD CHEST: Clear to auscultation. Occasional cough present. No respiratory distress. No wheezes rales or rhonchi HEART: Regular rate and rhythm. No murmur heard. Normal peripheral pulses. ABDOMEN: Soft, nontender, nondistended, normal active bowel sounds. EXTREMITIES: Normal range of motion. No edema. SKIN: Warm, dry, no rash. NEURO: No focal deficits. Alert and oriented x3. PSYCH: Normal mood and affect. Course Course Emergency Course: This is a 43-year-old female who presented for evaluation of a cough. Chest x- ray without evidence of pneumonia. She ready has Tessalon Perles at home. Advised to take those. Increase hydration. Hot tea with honey may help. Follow up with primary provider. She has an appointment with them next Tuesday. Go to the emergency department for worsening symptoms. Patient in agreement with plan of care. Level of Care: Express Care Visit Vital Signs Vital signs: Vital Signs Temperature 37.1 C 01/07/24 11:10 Pulse Rate 105 H 01/07/24 11:10 Respiratory Rate 20 01/07/24 11:10 Blood Pressure 126/67 01/07/24 11:10 Pulse Oximetry 100 01/07/24 11:10 Oxygen Delivery Room Air 01/07/24 11:10 Temperature 37.1 C 01/07/24 11:10 Pulse Rate 105 H 01/07/24 11:10 Respiratory Rate 20 01/07/24 11:10 Blood Pressure 126/67 01/07/24 11:10 Pulse Oximetry 100 01/07/24 11:10 Oxygen Delivery Room Air 01/07/24 11:10 Medical Decision Making Vital Signs Vital Signs: Vital Signs Temperature 37.1 C 01/07/24 11:10 Pulse Rate 105 H 01/07/24 11:10 Respiratory Rate 20 01/07/24 11:10 Blood Pressure 126/67 01/07/24 11:10 Pulse Oximetry 100 01/07/24 11:10 Oxygen Delivery Room Air 01/07/24 11:10 Temperature 37.1 C 01/07/24 11:10 Pulse Rate 105 H 01/07/24 11:10 Respiratory Rate 20 01/07/24 11:10 Blood Pressure 126/67 01/07/24 11:10 Pulse Oximetry 100 01/07/24 11:10 Oxygen Delivery Room Air 01/07/24 11:10 Imaging Data Radiologist's impression: EXAMINATION: XR chest 2V DATE: 01/07/2024 11:34 INDICATION: Cough. TECHNIQUE: Frontal and lateral views of the chest were obtained. COMPARISON: None. FINDINGS: There is mild scarring at the lung apices. No pleural effusion or p neumothorax. The heart size is normal. IMPRESSION: 1. Mild scarring at the lung apices. Discharge Plan Discharge Clinical Impression: Upper respiratory infection Patient Disposition: Home, Self-Care Condition: Stable Instructions: Antibiotic Form, Viral Syndrome (ED) Additional Instructions: TESSALON PERLES SHOULD HELP WITH COUGH, SHOULD HOT TEA AND HONEY Patient Language: Croatian Prescriptions: No Action ergocalciferol (vitamin D2) 1,250 mcg (50,000 unit) capsule 50,000 unit PO WEEKLY benzonatate 200 mg capsule See Rx Instructions .ROUTE .COMPLEX Rx Instructions: prescribed 12/21 eszopiclone 3 mg tablet 3 mg PO HS buspirone 10 mg tablet See Rx Instructions .ROUTE .COMPLEX Rx Instructions: as prescribed escitalopram oxalate 20 mg tablet 20 mg PO DAILY Follow-up/Referrals: Harms,Jeremy Caldera M.D. [Primary Care Provider] - Time of Disposition: 11:36
== END 2024-01-07 11:57 | disposition home or self-care (01) ==
PROVIDERS: Emergency Provider Nurse Practitioner; PCP Family Medicine
DX: J06.9 Acute upper respiratory infection, unspecified (principal); F41.9 Anxiety disorder, unspecified
CPT/HCPCS: 71046; 99213; G0463

== ENCOUNTER 2024-03-30 08:11 | Outpatient (CLI) | payer BC, SELFPAY ==
--- NOTE | ~2024-03-30 | MMUS_ITS ---
EXAMINATION: MM diagnostic [facility] LT w mynor, US breast LT limited HISTORY: Six-month follow-up of left breast TECHNIQUE: 3-D tomosynthesis images of the left breast were performed and synthetic 2-D images were g enerated. CAD analysis was submitted and interpreted. High resolution limited left breast ultrasound was performed. COMPARISON: 09/28/2023, 09/05/2023, 07/05/2022 BREAST PARENCHYMAL COMPOSITION:Not Dense. There are scattered areas of fibroglandular density. FINDINGS: MAMMOGRAPHIC FINDINGS: Parenchymal pattern of the left breast is unchanged. No suspicious mass lesion or distortion seen. St able small low-density mass at the upper, outer posterior left breast. ULTRASOUND: At the left breast 1:00 position, 2 cm from the nipple, there is a 7 x 6 x 3 mm parallel anechoic cys t, with posterior shadowing. At the 1:00 position left breast, 2 cm from the nipple, there is a 4 mm circumscribed hypoechoic mass, with possible minimal posterior through transmission. At the left yonatan st 2:00 position, 5 cm from the nipple, there is a stable 5 mm hypoechoic circumscribed mass with pos terior through transmission. IMPRESSION: Subcentimeter cysts and hypoechoic masses of the left breast, as detailed above, most likely benign. Additional six-month follow-up ultrasound advised at the time of recommended bilateral mammography. BI-RADS category 3, probably benign findings. Reviewed, dictated and finalized at location . ESSING INSPECTOR IMPRESSION: Subcentimeter cysts and hypoechoic masses of the left breast, as detailed abov e, most likely benign. Additional six-month follow-up ultrasound advised at the time of recommended bilateral mammography. BI-RADS category 3, probably benign findings.
== END 2024-03-30 08:12 | disposition home or self-care (01) ==
LOC: MICIMG 08:12
PROVIDERS: PCP Obstetrics & Gynecology Gynecology; Visit Provider Obstetrics & Gynecology Gynecology
DX: N63.21 Unspecified lump in the left breast, upper outer quadrant (principal)
CPT/HCPCS: 76642; 77061; 77065; G0279

== ENCOUNTER 2024-09-06 15:39 | Outpatient (CLI) | payer BC, SELFPAY ==
--- NOTE | ~2024-09-06 | MM_ITS ---
EXAMINATION: MM screening tristan BI w mynor HISTORY: Screening TECHNIQUE: Craniocaudal and mediolateral oblique 3-D tomosynthesis images were obtained and synthetic 2-D images were generated. CAD analysis was submitted and interpreted. COMPARISON: Comparison to multiple prior studies sequentially, with oldest reviewed study dated 06/15. BREAST PARENCHYMAL COMPOSITION: Not dense: There are scattered areas of fibroglandular density. FINDINGS: There is no evidence of suspicious mass, calcification, or architectural distortion to sugg est malignancy in either breast. There has been no suspicious interval change. IMPRESSION: 1. No mammographic evidence of malignancy. 2. Recommend routine screening mammography in one year. BI-RADS Category 1: Negative Reviewed, dictated and finalized at location B.
== END 2024-09-06 15:40 | disposition home or self-care (01) ==
LOC: MICIMG 15:40
PROVIDERS: PCP Obstetrics & Gynecology Gynecology; Visit Provider Obstetrics & Gynecology Gynecology
DX: Z12.31 Encounter for screening mammogram for malignant neoplasm of breast (principal)
CPT/HCPCS: 77063; 77067

== ENCOUNTER 2024-10-10 08:02 | Outpatient (CLI) | payer BC, SELFPAY ==
--- NOTE | ~2024-10-10 | US_ITS ---
EXAMINATION TYPE: US breast LT limited COMPARISON: 03/30/2024 REASON FOR STUDY: L breast mass TECHNIQUE: Targeted sonographic evaluation of the left breast was performed. INTERPRETATION: At the 1:00 position left breast, 2 cm from nipple, there is a 5 mm hypoechoic circumscribed wider than tall mass. There is an adjacent 3 mm cyst or hypoechoic mass in this region as well. At the 2:00 position left breast, 5 cm from the nipple, there is a 5 mm circumscribed hypoechoic solid mass. IMPRESSION: Stable subcentimeter hypoechoic masses in the left breast, as above. BI-RADS CATEGORY: BI-RADS 2: Benign Reviewed, dictated and finalized at location .
== END 2024-10-10 08:03 | disposition home or self-care (01) ==
LOC: MICIMG 08:03
PROVIDERS: PCP Obstetrics & Gynecology Gynecology; Visit Provider Obstetrics & Gynecology Gynecology
DX: N60.02 Solitary cyst of left breast (principal); N63.42 Unspecified lump in left breast, subareolar; N63.21 Unspecified lump in the left breast, upper outer quadrant
CPT/HCPCS: 76642